=== PATIENT | female | born 1995 | race African-American/Black ===

== ENCOUNTER 2017-10-18 10:53 | Emergency (ER) | payer MEDICAID ==
[~2017-10-18] VITALS: Ht 160 cm; Wt 113.0 kg
[2017-10-18 12:00] VITALS: BP 124/79
== END 2017-10-18 12:24 | disposition home or self-care (01) ==
LOC: ER 10:53
DX: N64.4 Mastodynia (principal); N64.52 Nipple discharge; F12.10 Cannabis abuse, uncomplicated
CPT/HCPCS: 81025; 99283